=== PATIENT | male | born 1960 | race Caucasian/White ===

== ENCOUNTER → 2020-02-19 | Outpatient (CLI) | payer BC ==
[~2020-02-19] MED LIST: ALLEGRA ALLERG180 MG PO; CALTRATE-600 W1 EACH PO; CENTRUM SILVER1 EAC2 PO; FISH OIL 1,0001 EAC9 PO; FLOMAX0.4 MG PO; FLONASE 0.05%50 MCG NARES; GABAPENTIN600 M1 PO; GLUCOSAMINE &1 EACH PO; LOPID600 MG PO; MAGNESIUM GLUCO30 MG PO; MAXALT MLT ODT10 M1 PO; NORCO 5-325 TA1 EACH PO; OMEPRAZOLE20 MG PO; OMEPRAZOLE40 MG PO; PROBIOTIC1 EAC4 PO; TOPAMAX 25 MG T25 M1 PO; XYZAL5 MG PO; ZOCOR 10 MG TAB10 MG PO
== END ==
LOC: LAB 14:42
PROVIDERS: ATTEND Specialist
DX: Z01.812 Encounter for preprocedural laboratory examination (principal); Z20.828 Contact with and (suspected) exposure to other viral communicable diseases

== ENCOUNTER → 2020-02-24 | Outpatient (CLI) | payer BC ==
[~2020-02-24] VITALS: Ht 175.3 cm; Wt 90.7 kg
--- NOTE | 2020-02-26 09:53 | P ---
[facility] [place] [address] PROCEDURE REPORT Name: DALLINRICKY Tam Room #: REG [facility] ToddBinta#: [id number] Admission: 02/24/20 Attend Phys: Dillon Mo Discharge: Date of : 62 Report #: [id number] THIS REPORT FOR: cc: Talib Sommers DO Physician not on staff Dillon Nguyen MD ~ CC: Dillon Sommers DO Physician staff DATE OF SERVICE: 02/24/2020 PROCEDURE PERFORMED: Flexible sigmoidoscopy with APC cautery and bleeding control. HISTORY OF PRESENT ILLNESS: The patient is a 59-year-old male with a history of prostate cancer, lymphoma, status post radiation. He underwent a colonoscopy by myself on 01/21/2020, was noted to have significant radiation proctitis and has had recent bleeding. He was treated at that time with 7-[place] bipolar cautery. He continues to have bleeding. The plan therefore is to proceed with flexible sigmoidoscopy today with APC cautery. DESCRIPTION OF PROCEDURE: The risks and benefits of the procedure were explained to the patient. Those risks including but not limited to bleeding, perforation and the risk of sedation. He understood these risks and gave informed consent. Sedation was given using propofol per anesthesia. Next, a digital rectal exam was initially performed, which was normal. Next, using a standard Olympus colonoscope, the scope was placed in the patient's anus and advanced under direct vision to the distal sigmoid colon. The overall prep was excellent. Significant radiation proctitis was noted in the rectum. Again, there was small amount of active oozing actually with bright red blood. I then proceeded with treating with APC cautery. All areas were treated. No evidence of bleeding was noted after treatment. Small internal hemorrhoids were again noted, nonbleeding. The scope was then withdrawn and the procedure terminated. The patient tolerated the procedure well. IMPRESSION: 1. Significant radiation proctitis with active bleeding. 2. Status post APC cautery today. No further bleeding was noted. RECOMMENDATIONS: 1. Observe the patient post-procedure. 2. If the patient has continued bleeding in the future, would recommend repeat flex sig with further APC treatment at that time. [address] [address] PROCEDURE REPORT Name: RICKY ZAMARRIPA Room #: REG [facility] Alexander#: [id number] Admission: 02/24/20 Attend Phys: Dillon Mo Discharge: Date of : 62 Report #: [id number] Thank you for allowing me to participate in his care. <ELECTRONICALLY SIGNED> By: Dillon Nguyen MD 02/26/20 [id number] Dillon Nguyen MD /nt
== END | disposition home or self-care (01) ==
LOC: GI 09:28
PROVIDERS: ATTEND Specialist
DX: K62.5 Hemorrhage of anus and rectum (principal); K62.7 Radiation proctitis; K64.8 Other hemorrhoids; G43.909 Migraine, unspecified, not intractable, without status migrainosus; E78.00 Pure hypercholesterolemia, unspecified; K21.9 Gastro-esophageal reflux disease without esophagitis; Z85.46 Personal history of malignant neoplasm of prostate; Z85.72 Personal history of non-Hodgkin lymphomas; Z98.52 Vasectomy status; Z87.19 Personal history of other diseases of the digestive system; Z98.890 Other specified postprocedural states; Z79.899 Other long term (current) drug therapy
CPT/HCPCS: 62110; 62900